=== PATIENT | male | born 1975 | race Caucasian/White ===

== ENCOUNTER 2016-12-13 14:50 | Emergency (ER) | payer OTHER ==
[~2016-12-13 14:50] MED LIST: AMOXICILLIN PO; DICLOFENAC; FLONASE16 GM; MAGIC MOUTHWASH PO; NAPROSYN500 MG PO; PEN-VEE K PO; PREVACID PO; PRINIVIL20 M1 PO; VITAMIN E100 UNIT; VITAMIN E400 UNI1 PO; ZITHROMAX
== END 2016-12-13 14:52 | disposition home or self-care (01) ==
LOC: SED 14:50
DX: L03.116 Cellulitis of left lower limb (principal); L03.115 Cellulitis of right lower limb; F17.210 Nicotine dependence, cigarettes, uncomplicated
CPT/HCPCS: 99282